=== PATIENT | female | born 1960 | race Caucasian/White ===

== ENCOUNTER → 2017-01-23 | Outpatient (CLI) | payer OTHER ==
[~2017-01-23] MED LIST: ASPIRIN CHEWABL81 MG PO; FOLIC ACID1 MG PO; LASIX20 MG PO; LIPITOR TAB 2020 MG PO; METOPROLOL TART25 MG PO; THERAGRAN M TAB1 EA PO
== END ==
LOC: RAD 16:34
DX: M25.511 Pain in right shoulder (principal); M79.641 Pain in right hand; M54.6 Pain in thoracic spine; M54.5 Low back pain; M47.816 Spondylosis without myelopathy or radiculopathy, lumbar region; M25.531 Pain in right wrist; M54.2 Cervicalgia; M47.812 Spondylosis without myelopathy or radiculopathy, cervical region; S52.611A Displaced fracture of right ulna styloid process, initial encounter for closed fracture
CPT/HCPCS: 72050; 72072; 72100; 73030; 73110; 73130